=== PATIENT | female | born 1970 | race Caucasian/White ===

== ENCOUNTER 2017-10-21 15:50 | Emergency (ER) | payer OTHER, SELFPAY ==
[2017-10-21 16:05] VITALS: BP 124/78; PULSE 69; RESP 16; TEMP 36.7; O2SAT 94; BMI 27.0
--- NOTE | 2017-10-21 18:31 | ED.WOUNDLAC ---
HPI - Wound/Laceration General Chief Complaint: Wound/Laceration Stated Complaint: HIT IN THE HEAD Time Seen by Provider: 10/21/17 18:31 Source: patient Mode of arrival: ambulatory Limitations: no limitations History of Present Illness HPI narrative: The patient was visiting with family members about noon today. She went through a doorway. There was a wood carving of a boat mounted over the doorway. When the door slammed, the fixture fell striking her in the vertex of her scalp. She has a laceration and headache. She denies visual changes, confusion, or speech changes. She has had no bleeding from the nose, ears or mouth. She has no neck pain. Related Data Previous Rx's Medication Instructions Recorded albuterol sulfate [Ventolin HFA] 1 puff INH Q4H PRN #1 ea 03/22/16 metoprolol succinate [Toprol XL] 25 mg PO QDAY #90 tab 04/12/17 levothyroxine 0.05 mg PO QAM #90 tab 08/17/17 Allergies Allergy/AdvReac Type Severity Reaction Status Date / Time erythromycin base Allergy Mild Unverified 10/21/17 16:04 penicillin G Allergy Mild HIVES Unverified 10/21/17 16:04 Review of Systems Review of Systems All systems reviewed & are unremarkable except as noted in HPI and below Constitutional Reports as per HPI, Denies fatigue, Denies lethargy and Denies malaise Eyes Denies blurry vision and Denies change in vision ENT Ears, Nose, Mouth, and Throat: Denies abnormal hearing, Denies change in voice, Denies dizziness and Denies neck pain Musculoskeletal Denies neck pain Neurologic Denies abnormal hearing and Denies dizziness Endocrine Denies fatigue PFSH Surgical History History of third molar tooth extraction Family History Mother Age: 83 Hypertension Sister Age: 59 Cancer Social History Smoking Status: Never smoker Exam Initial Vital Signs Initial Vital Signs: Vital Signs Temperature 98.1 F 10/21/17 16:05 Pulse Rate 69 10/21/17 16:05 Respiratory Rate 16 10/21/17 16:05 Blood Pressure 124/78 H 08/04/18 16:05 Pulse Oximetry 94 10/21/17 16:05 Const General: cooperative and healthy appearing Nutritional Appearance: well nourished Orientation: alert, awake, oriented x3 and not confused [facility] Head: normocephalic and laceration (1 cm laceration to the vertex of the scalp) Ears: external ears normal and TM's normal bilaterally Nose: external nose normal, nares normal and No nasal discharge Face and sinus: sinuses nontender, face symmetric, no sinus tenderness and No dry mucous membranes Mouth: oral mucosae normal and moist mucous membranes Throat: posterior oropharynx normal Eyes General: appearance normal, both eyes and all related structures Eyelids: eyelids normal Conjunctivae: conjunctivae normal Sclera: sclerae normal Pupils: PERRL EOM: EOM intact bilaterally Neck Neck: normal visual inspection, full ROM and No tender Procedures Laceration Repair Laceration 1: Site: other (Scalp) Size (cm): 1 Description: linear Depth: simple, single layer Pre-repair: wound explored and irrigated extensively Course Vital Signs - 8 hr 10/21/17 16:05 Temperature 98.1 F Pulse Rate 69 Respiratory Rate 16 Blood Pressure 124/78 H Pulse Oximetry 94 Discharge Plan Departure Patient Disposition: Home, Self-Care Clinical Impression: Laceration of scalp Instructions: DI for Laceration Repair With Dermabond Activity Restrictions/Additional Instructions: Take Tylenol or Advil as needed for pain. You may shampoo after 24 hr. If the glue is not out within 5 days, apply a little Vaseline or baby oil to the glue, this will loosen the glue and will remove easily at that point. Return here for worsening headaches, visual changes, vomiting or confusion. Prescriptions: No Action albuterol sulfate [Ventolin HFA] 90 MCG/PUFF HFA aerosol inhaler 1 puff INH Q4H PRNQty: 1 RF: 3 metoprolol succinate [Toprol XL] 25 MG tablet extended release 24 hr 25 mg PO QDAY Qty: 90 RF: 3 levothyroxine 50 mcg tablet 0.05 mg PO QAM Qty: 90 RF: 0
[2017-10-21 18:56] VITALS: BP 120/70; PULSE 62; RESP 14; O2SAT 99
== END 2017-10-21 18:57 | disposition home or self-care (01) ==
PROVIDERS: Emergency Provider Emergency Medicine; Family Provider Family Medicine; PCP Family Medicine
DX: S01.01XA Laceration without foreign body of scalp, initial encounter (principal); W22.09XA Striking against other stationary object, initial encounter
CPT/HCPCS: 12001; 99282; 99283

== ENCOUNTER → 2018-06-30 09:05 | Outpatient (CLI) | payer OTHER, SELFPAY ==
--- NOTE | 2018-06-30 | DI.MG.S_ITS ---
BILATERAL DIGITAL SCREENING MAMMOGRAM 3D/2D WITH CAD: 06/30/2018 CLINICAL: Routine screening. Family history of breast cancer. Comparison is made to exams dated: 05/05/2017 mammogram, 04/01/2016 mammogram, and 09/05/2014 mammogram - [facility]. The tissue of both breasts is heterogeneously dense. This may lower the sensitivity of mammography. Current study was also evaluated with a Computer Aided Detection (CAD) system. No significant masses, calcifications, or other findings are seen in either breast. There has been no significant interval change. IMPRESSION: NEGATIVE There is no mammographic evidence of malignancy. A 1 year screening mammogram is recommended. This exam was interpreted at Station ID: [id number]. NOTE: For mammograms, a report in lay terms will be sent to the patient. Approximately 15% of breast malignancies will not be visualized mammographically. In the management of a palpable breast mass, a negative mammogram must not discourage biopsy of a clinically suspicious lesion. Electronically Signed By: Geo siddiqui/grace:07/02/2018 08:52:44 copy to: BATSHEVA SANCHEZ letter sent: Normal Exam ACR BI-RADS Category 1: Negative [id number]
== END ==
DX: Z12.31 Encounter for screening mammogram for malignant neoplasm of breast (principal); Z80.3 Family history of malignant neoplasm of breast
CPT/HCPCS: 77063; 77067

== ENCOUNTER → 2018-10-08 12:01 | Outpatient (CLI) | payer OTHER, SELFPAY ==
[2018-10-08 12:43] LABS: Add Manual Diff / Slide Review NO; Basophils Absolute Auto 0 /uL (0-100); Basophils Percent Auto 0.4 % (0-2); Eosinophils Absolute Auto 200 /uL (0-450); Eosinophils Percent Auto 3.3 % (2-4); Hematocrit 41.4 % (36-46); Hemoglobin 14.3 g/dL (12.0-16.0); Lymphocytes Absolute Auto 2200 /uL (1100-4500); Lymphocytes Percent Auto 38.4 % (25-40); Mean Corpuscular HGB Conc 34.6 % (30-36); Mean Corpuscular Hemoglobin 32.7 PG (26-34); Mean Corpuscular Volume 94.6 fL (80-100); Monocytes Absolute Auto 400 /uL (0-900); Monocytes Percent Auto 6.8 % (3-14); Neutrophils Absolute Auto 2900 /uL (1500-7000); Neutrophils Percent Auto 51.1 % (50-75); Platelet Count 219 X10^3/uL (150-400); Red Blood Cell Count 4.38 X10^6/uL (4.0-5.2); White Blood Cell Count 5.7 X10^3/uL (4.5-11.0)
[2018-10-08 13:08] LABS: Blood Urea Nitrogen 15 mg/dL (7-17); Calcium 9.6 mg/dL (8.4-10.2); Carbon Dioxide 26 mmol/L (22-32); Chloride 107 mmol/L (98-107); Estimated Glomerular Filt Rate > 60.0 mL/min (>60); Glucose 93 mg/dL (70-100); HEMOLYSIS < 15 (0-50); Magnesium 2.1 mg/dL (1.6-2.3); Potassium 3.9 mmol/L (3.4-5.1); Sodium 140 mmol/L (137-145)
[2018-10-08 13:39] LABS: Thyroid Stimulating Hormone 3.05 uIU/mL (0.47-4.68)
== END ==
PROVIDERS: Family Provider Student in an Organized Health Care Education/Training Program; PCP Student in an Organized Health Care Education/Training Program; Visit Provider Internal Medicine Cardiovascular Disease
DX: I49.3 Ventricular premature depolarization (principal)
CPT/HCPCS: 36415; 80048; 83735; 84443; 85025

== ENCOUNTER → 2018-10-24 07:46 | Outpatient (CLI) | payer OTHER, SELFPAY ==
--- NOTE | 2018-10-24 | DI.ECHO.S_ITS ---
[place] [facility]---------+ [facility] +---------+ : : [address] : : : : [id number] : : : : Phone: [phone] Echocardiogram Report + + :Name: HOWARD MACKENZIE Study Date: 10/24/2018 Height: 61 in : :[facility] Weight: 140 lb: : Gender: Female BSA: 1.6 m2 : :: 1970 Age: 48 yrs : :Reason For Study: PVCs : : Performed By: Venkatesh Barrios : :Referring: TISH RUSSELL : + + Interpretation Summary 1) Normal left ventricular thickness, size, wall motion, and systolic function (EF 55-60%). 2) Normal right ventricular size and function. 3) No significant valvular abnormalities. 4) No prior Echo available for comparison. Procedure: A two-dimensional transthoracic echocardiogram with color flow and Doppler was performed. The study quality was technically adequate. Comparison is made with the echocardiogram of 05/09/16. The patient was in normal sinus rhythm during the exam. The patient had frequent PVCs during the exam. Left Ventricle: The left ventricle is normal in size. There is normal left ventricular wall thickness. Trabeculae near apex are visualized. No thrombus is observed. The ejection fraction is estimated to be 55-60%. There are no focal wall motion abnormalities. Right Ventricle: The right ventricle is normal in size and function. Atria: Both atria are normal in size. The interatrial septum is intact with no evidence for an atrial septal defect. Mitral Valve: The mitral valve is normal in structure and function. There is trace mitral regurgitation. Aortic Valve: The aortic valve is trileaflet. The aortic valve opens well. There is no aortic valve stenosis. There is trace aortic regurgitation. Tricuspid Valve: The tricuspid valve is normal in structure and function. There is trace tricuspid regurgitation. The right ventricular systolic pressure is estimated to be at least 19 mmHg based on an estimated right atrial pressure of 3 mm Hg. Pulmonic Valve: The pulmonic valve is normal in structure and function. There is trace pulmonic regurgitation. Great Vessels: The aortic root is normal size. The dimensions of the ascending aorta are normal. The pulmonary artery is normal size. The IVC is of normal diameter and collapses greater than 50% with a sniff. This suggests a low right atrial pressure of 3 mm Hg. Pericardium/ Pleura There is no pericardial effusion. There is no pleural effusion. MMode/2D Measurements & Calculations LVIDd: 3.7 cm LVOT diam: 1.9 cm LVIDs: 2.6 cm Ao root diam: 2.9 cm FS: 29.3 % Aortic Jxn: 2.5 cm EPSS: 0.69 cm asc Aorta Diam: 2.7 cm IVSd: 0.81 cm Ao Arch Diam (Prox Trans): 2.5 cm LVPWd: 0.82 cm LV rangel. diameter/BSA (cm/m^2): 2.3 LV sys. diameter/BSA (cm/m^2): 1.6 LA dimension: 3.0 cm RA long axis: 3.7 cm LA A2 area: 15.4 cm2 RA area: 10.7 cm2 LA A4 area: 17.7 cm2 RA vol: 26.0 ml LA length (vol): 5.2 cm RA : 16.0 ml/m2 LA vol: 44.6 ml IVC diam: 1.5 cm LA vol index: 27.5 ml/m2 RVD1 (basal): 3.2 cm RVD2 (mid): 3.5 cm Doppler Measurements & Calculations Ao V2 max: 120.1 cm/sec LVOT Max Rodger: 109.1 cm/sec Ao V2 mean: 94.7 cm/sec LV V1 max P.8 mmHg Ao max P.8 mmHg LV V1 VTI: 24.5 cm Ao mean P.8 mmHg DAVIAN(I,D): 2.1 cm2 Ao V2 VTI: 30.8 cm DAVIAN(V,D): 2.5 cm2 sev ratio: 0.80 DAVIAN indexed to BSA (cm^2/m^2): 1.3 MV E max rodger: 78.4 cm/sec TR max rodger: 201.8 cm/sec MV A max rodger: 63.6 cm/sec TR max P.3 mmHg MV E/A: 1.2 PA V2 max: 57.4 cm/sec Med Peak E' Rodger: 5.6 cm/sec PA V2 mean: 46.0 cm/sec E/E' med: 14.1 PA mean P.87 mmHg Lat Peak E' Rodger: 10.3 cm/sec PA pr(Accel): 42.4 mmHg E/E' lat: 7.6 PA Accel Time: 0.08 sec E/e' average: 10.8 MV dec time: 0.18 sec SV([facility]): 66.2 ml Reading Physician:12:30 PM
== END ==
PROVIDERS: PCP Student in an Organized Health Care Education/Training Program; Visit Provider Internal Medicine Cardiovascular Disease
DX: I49.3 Ventricular premature depolarization (principal)
CPT/HCPCS: 93306

== ENCOUNTER 2019-06-12 13:09 | Emergency (ER) | payer OTHER, SELFPAY ==
[2019-06-12 13:10] VITALS: BP 140/72; PULSE 87; RESP 16; TEMP 36.8; O2SAT 99; BMI 28.3
--- NOTE | 2019-06-12 13:25 | PC.NURSE ---
pt reports, tenderness of lower abdominal.
--- NOTE | 2019-06-12 13:31 | ED_ITS ---
HPI - Abdominal Pain <RIP Canales - Last Filed: 06/12/19 15:16> General Chief Complaint: Abdominal Pain Stated Complaint: Thinks has an impaction Time Seen by Provider: 06/12/19 13:10 Source: patient Mode of arrival: Ambulatory Limitations: no limitations History of Present Illness HPI narrative: This is a 49-year-old female, nonsmoker, who presents to ED with abdominal discomfort and distension. Patient reports she feels impaction in the rectal area. Patient states she has bowel movement usually at least once to twice a day but no bowel movements for last 2 days and feels like it's backed up. Patient denies fever, chills, nausea. She had mucousy vomit last night after she took 2 doses of 2 complex and from abdominal cramping discomfort. Patient has normal appetite. She denies changes in activity but has been taking increasing and bread in her diet. Patient states possibly not enough drinking water. Patient states she has occasional problem with constipation. She felt mushy stools in the rectum but no hard stools. Related Data Home Medications Medication Instructions Recorded Confirmed diltiazem HCl 120 mg 120 mg PO DAILY 01/15/19 05/29/19 tablet,extended release 24 hr flecainide 50 mg tablet 50 mg PO Q12H 05/29/19 05/29/19 Previous Rx's Medication Instructions Recorded albuterol sulfate 90 mcg/actuation 1 puff INHALATION Q4H PRN #6.7 gram 05/29/19 aerosol inhaler azithromycin 250 mg tablet See Rx Instructions PO .COMPLEX #6 05/29/19 tab ondansetron 4 mg disintegrating 4 mg PO BID PRN 7 Days #14 tab 05/29/19 tablet Allergies Allergy/AdvReac Type Severity Reaction Status Date / Time erythromycin base Allergy Mild Verified 06/12/19 13:20 penicillin G Allergy Mild HIVES Verified 06/12/19 13:20 Review of Systems <RIP Canales - Last Filed: 06/12/19 15:16> Review of Systems Narrative: General: Denies fever, chills, fatigue, malaise, sweats. HEENT: Denies sinus pain, ear pain, sore throat, difficulty swallowing, dizziness. Respiratory: Denies dyspnea, cough, wheezing, hemoptysis, sputum. Cardiovascular: Denies chest pain, palpitations, orthopnea, edema. Gastrointestinal: See HPI : Denies dysuria, frequency, incontinence, hematuria, urinary retention. Musculoskeletal: Denies weakness, joint pain or bony pain. Skin: Denies rash, skin lesions, or other. Neurologic: Denies weakness, headache, numbness, change in speech, confusion, seizures, incoordination. Psychiatric: No concerning psychosocial issues. 12-point review of systems is negative except for those stated above. Patient History <RIP Canales - Last Filed: 06/12/19 15:16> Medical History (Updated 06/12/19 @ 15:12 by RIP Canales) PVCs (premature ventricular contractions) (Acute) Skin cancer (Acute) Surgical History History of third molar tooth extraction Social History Smoking Status: Never smoker Smoking Status: Never smoker Substance Use Type: does not use Exam <RIP Canales - Last Filed: 06/12/19 15:16> Narrative Exam Narrative: GEN: Alert, oriented x 3, well appearing and nourished, and in no acute distress. Head: Normal cephalic, atraumatic. No scalp or temporal tenderness, palpable mass or rash. EYES: Pupils are equal, round, and reactive to light and accommodation. Extraocular muscles are intact bilaterally. There is no subconjunctival hemorrhage, exudate and sclera non-icteric. ENT: Bilateral auditory canals and tympanic membranes clear. Hearing grossly intact. Nose without bleeding, purulent discharge or deviation. Facial sinuses nontender to palpate. Mucous membrane moist, no mucosal lesion. Throat without erythema, tonsillar hypertrophy or exudate. Uvula in midline, airway patent. Neck: Trachea in midline. No JVD, non-tender without lymphadenopathy. No masses or thyroid megaly. Supple, non-tender and no meningeal signs. CARDIAC: Normal regular rate and rhythm without murmurs, gallops, or rubs. No chest wall tenderness. No peripheral edema, cyanosis or pallor. Capillary refill is less than 2 seconds. RESPIRATORY: Lungs are clear to auscultate bilaterally. No cough, wheezes, rales, or rhonchi. No stridor, respiratory distress, increase work of breathing, or accessary muscle used. ABD: Abdomen soft and non-distended. Mild discomfort to palpate in left lower quadrant. No guarding or rebound tenderness to palpate. Bowel sounds are normal in all 4 quadrants. There is no palpable masses or organomegaly. EXT: Full painless ROM of all extremities with no loss of sensation, strength, effusion or edema. SKIN: Warm, dry, normal color for patient. No erythema, lesions or rash over visible areas. BACK: Nontender without deformity or crepitance. No flank tenderness. NEUROLOGICAL: Alert and oriented to place, time and person. Sensation and motor function intact bilaterally. No facial droops, dysphasia. Initial Vital Signs Initial Vital Signs: Vital Signs Temperature 98.2 F 06/12/19 13:10 Pulse Rate 87 06/12/19 13:10 Respiratory Rate 16 06/12/19 13:10 Blood Pressure 140/72 06/12/19 13:10 Pulse Oximetry 99 06/12/19 13:10 <Konrad Carlson DO - Last Filed: 06/12/19 15:21> Initial Vital Signs Initial Vital Signs: Vital Signs Temperature 98.2 F 06/12/19 13:10 Pulse Rate 87 06/12/19 13:10 Respiratory Rate 16 06/12/19 13:10 Blood Pressure 140/72 06/12/19 13:10 Pulse Oximetry 99 06/12/19 13:10 Scores <RIP Canales - Last Filed: 06/12/19 15:16> GCS Soham coma scale eye opening: Spontaneous Soham coma scale verbal response: Orientated Soham coma scale motor response: Obey commands Dunbar coma scale total score: 15 Course <RIP Canales - Last Filed: 06/12/19 15:16> Orders Ordered: ED Orders 06/12/19 13:30 XR acute abdomen series Stat Discontinued Medications Mineral Oil (Mineral Oil Enema) 1 each [place] NOW ONE Stop: 06/12/19 15:18 Sodium Biphosphate/Sodium Phosphate (Fleet Enema) 1 each [place] NOW ONE Stop: 06/12/19 14:27 Vital Signs Vital signs: Vital Signs - 8 hr 06/12/19 13:10 Temperature 98.2 F Pulse Rate 87 Respiratory Rate 16 Blood Pressure 140/72 Pulse Oximetry 99 <Konrad Carlson DO - Last Filed: 06/12/19 15:21> Orders Ordered: ED Orders 06/12/19 13:30 XR acute abdomen series Stat Discontinued Medications Mineral Oil (Mineral Oil Enema) 1 each [place] NOW ONE Stop: 06/12/19 15:18 Sodium Biphosphate/Sodium Phosphate (Fleet Enema) 1 each [place] NOW ONE Stop: 06/12/19 14:27 Vital Signs Vital signs: Vital Signs - 8 hr 06/12/19 13:10 Temperature 98.2 F Pulse Rate 87 Respiratory Rate 16 Blood Pressure 140/72 Pulse Oximetry 99 MDM - Abdominal Pain <RIP Canales - Last Filed: 06/12/19 15:16> Differential Diagnosis Differential diagnosis: Likely abdominal pain, small bowel obstruction and other (constipation) Medical Records Attestation: I reviewed the patient's medical records. Imaging Data XR-AAS: Radiologist's Impression: [address] [address] XRay Report Signed Patient: Evonne Hutton MMR#: [id number] : 1970Acct:[id number] Age/Sex: 49 / FDate of Service: 06/12/19 Loc: ED Accession Number: [id number] Procedure: XR acute abdomen series Ordering Provider: Ethan Guerin PROCEDURE: XR ACUTE ABDOMEN SERIES INDICATIONS: abd pain, distention TECHNIQUE: One view chest and two views of the abdomen were acquired. COMPARISON: None. FINDINGS: Surgical changes and devices: None. Chest: Lungs are clear. Heart size is normal. No pleural effusions. No pneumoperitoneum. Abdomen: Bowel gas pattern is normal. No air-filled distended small bowel loops are evident demonstrating air-fluid levels. Moderate amount of stool seen within the colon. No suspicious calcifications. Visualized solid organ contours appear normal. Bones: No suspicious bony lesions. IMPRESSION: 1. No bowel obstruction. 2. No acute cardiopulmonary process is evident. Dictated by: Sterling Baker M.D. on 06/12/2019 at 13:16 Approved by: Sterling Baker M.D. on 06/12/2019 at 13:18 MDM Narrative Medical decision making narrative: This is 49 year female who presents to ED with no good bowel movement for last 2 days with rectal pressure and mild discomfort in her abdomen without fever. Patient reports changes in her diet with increased bread intake. X-ray test does not show bowel obstruction but moderate stool in colon. Rectal exam appreciated semi soft stool in rectal vault. Fleet enema was provided while in ED with good result. Patient reports feeling much better at this time and is interesting taking additional medications to help with her constipation. Patient advised to take magnesium citrate or milk of magnesium with acute symptoms and incorporate with increasing water, activity and fiber daily to prevent constipation. Also patient advised to take MiraLax as needed to prevent constipation. Return precautions were discussed with the patient and patient verbalized understanding and agreement with the treatment plan. Discharge Plan Departure Patient Disposition: Home Clinical Impression: Constipation Qualifiers: Constipation type: unspecified constipation type Qualified Code(s): K59.00 - Constipation, unspecified Instructions: DI for Abdominal Pain-Adult, DI for Constipation Activity Restrictions/Additional Instructions: You have been diagnosed with [abdominal pain and constipation. Acute abdominal series x-ray does not indicate bowel obstruction but moderate stool in colon. You were medicated with Fleet enema while in ED with good result. Please increase water and fiber intake. You can incorporate magnesium daily to prevent constipation. With acute symptoms, you can use Mag citrate or milk of magnesium. To prevent constipation, you can use MiraLax [id number] medication.]. What to do: *Take your medications as directed. *Follow up with your primary care provider in 2-3 days, call for an appointment. Let them know you were seen in the ED and that we asked you to be seen in follow up. *Return to ED if you have any new, worsening, or concerning symptoms, such as [fever, increasing pain, chest pain, breathing difficulty, unable to tolerate fluids, fainting like episodes, or any acute concerns]. Prescriptions: No Action diltiazem HCl 120 mg tablet extended release 24 hr 120 mg PO DAILY RF: 0 flecainide 50 mg tablet 50 mg PO Q12H RF: 0 albuterol sulfate [Ventolin HFA] 90 mcg/actuation HFA aerosol inhaler 1 puff inhalation Q4H PRN (Reason: bronchospasm) Qty: 6.7 RF: 11 ondansetron 4 mg tablet,disintegrating 4 mg PO BID PRN (Reason: nausea and vomiting) 7 Days Qty: 14 RF: 0 azithromycin 250 mg tablet See Rx Instructions PO .COMPLEX Qty: 6 RF: 0 Referrals: Gilberto Hope MD [Primary Care Provider] - <Konrad Carlson, - Last Filed: 06/12/19 15:21> Cosign ED Attending Cosignature Attestation: Dr Carlson Co-Sign Statement: I was available for consultation during this patient's emergency department visit. This chart is signed by myself for administrative purposes only. I did not have direct contact with this patient during this visit. They were seen independently by the APC.
[2019-06-12 15:21] VITALS: PULSE 55; RESP 18; TEMP 36.9; O2SAT 98
[2019-06-12] MEDS: MINERAL OIL 1 EACH ENEMA PR (15:21)
== END 2019-06-12 15:30 | disposition home or self-care (01) ==
PROVIDERS: Emergency Provider Nurse Practitioner Family; PCP Student in an Organized Health Care Education/Training Program
DX: K59.00 Constipation, unspecified (principal); R10.9 Unspecified abdominal pain; E03.9 Hypothyroidism, unspecified
CPT/HCPCS: 74022; 99283

== ENCOUNTER 2019-08-25 13:30 | Emergency (ER) | payer OTHER, SELFPAY ==
[2019-08-25 14:05] VITALS: BP 123/60; PULSE 70; RESP 16; TEMP 36.7; O2SAT 99; BMI 26.4
--- NOTE | 2019-08-25 16:28 | DI.RAD.S_ITS ---
PROCEDURE: XR LUMBAR SPINE 2-3V INDICATIONS: back pain TECHNIQUE: 3 views of the lumbar spine were acquired. COMPARISON: None. FINDINGS: Bones: There are 5 lumbar-type vertebral bodies. The lowest intervertebral disk space is designated as L5-S1. The vertebral body heights are well-maintained without evidence to suggest an acute compression fracture. The bone mineralization is within normal limits. Moderate degenerative changes of the lumbar spine are prematurely evident involving the lower lumbar facet joints. There are scattered areas of mild disc height loss, particularly within the upper lumbar region. There also are small intra-disc osteophyte complexes. Moderate degenerative changes of the sacroiliac joints are present. Soft tissues: The soft tissues of the imaged abdomen and pelvis are within normal limits. IMPRESSION: Moderate degenerative changes of the lumbosacral spine. No fractures. Dictated by: Sterling Baker M.D. on 08/25/2019 at 15:49 Approved by: Sterling Baker M.D. on 08/25/2019 at 15:52
[2019-08-25] MEDS: KETOROLAC 60 MG/2 ML VIAL 30 MG IM (16:36)
[2019-08-25] MEDS: LIDOCAINE PATCH 1 EACH ADH..PATCH TOP (16:36)
[2019-08-25] MEDS: CYCLOBENZAPRINE 10 MG TABLET PO (16:38)
[2019-08-25] MEDS: predniSONE 20 MG TABLET 60 MG PO (18:29)
[2019-08-25] MEDS: HYDROCODONE/ACET 5/325 TABLET 1 TAB PO (18:29)
[2019-08-25 19:24] VITALS: BP 123/76; PULSE 77; RESP 16; O2SAT 98
[2019-08-25] MEDS: HYDROCODONE/ACET 5/325 PREPACK 1 BOTTLE MISC (19:43)
--- NOTE | 2019-08-25 20:23 | ED_ITS ---
HPI - Back Pain/Injury <SHERRON Quiroga - Last Filed: 08/25/19 20:28> General Chief Complaint: Back Pain/Injury Stated Complaint: low back out x5 days ago Time Seen by Provider: 08/25/19 16:00 Source: patient Mode of arrival: Wheelchair Limitations: no limitations History of Present Illness HPI Narrative: The patient is a 49-year-old female nonsmoker with history of hypothyroidism and arrhythmia who presents with a chief complaint of lower back pain after falling 5 days ago. She states she got tangled up in her dog's leash, fell forward. Since then she has had low back pain radiating down the backs of both of her legs. She denies any incontinence of bowel, incontinence of bladder numbness of her groin. She has tried taking Advil with no relief. She has not followed up with primary care provider. She states that she did not hit her head neck or back on the fall, but fell forward and caught herself with her hands. She denies any previous injuries to her back before. Related Data Home Medications Medication Instructions Recorded Confirmed diltiazem HCl 120 mg 120 mg PO DAILY 01/15/19 08/29/19 tablet,extended release 24 hr flecainide 50 mg tablet 50 mg PO Q12H 05/29/19 08/29/19 Previous Rx's Medication Instructions Recorded albuterol sulfate 90 mcg/actuation 1 puff INHALATION Q4H PRN #6.7 gram 05/29/19 aerosol inhaler Allergies Allergy/AdvReac Type Severity Reaction Status Date / Time erythromycin base Allergy Mild Verified 08/29/19 12:50 penicillin G Allergy Mild HIVES Verified 08/29/19 12:50 Review of Systems <AMY Quiroga - Last Filed: 08/25/19 20:28> Review of Systems Narrative: GENERAL: Denies chills, fatigue, malaise, fever, sweats. HEENT: Denies sinus pain, ear pain, sore throat, difficulty swallowing, dizziness. RESPIRATORY: Denies dyspnea, cough, wheezing, hemoptysis, sputum. CARDIOVASCULAR: Denies chest pain, palpitations, orthopnea, edema, GASTROINTESTINAL: Denies nausea, vomiting, abdominal pain, diarrhea, constipation, melena. : Denies dysuria, frequency, incontinence, hematuria, urinary retention. MUSCULOSKELETAL: See HPI SKIN: Denies rash, skin lesions, or other NEUROLOGIC: Denies weakness, headache, numbness, change in speech, confusion, seizures, incoordination. PSYCHIATRIC: No concerning psychosocial issues. 12 point review of systems is negative except for those stated above Patient History <AMY Quiroga - Last Filed: 08/25/19 20:28> Medical History PVCs (premature ventricular contractions) (Acute) Skin cancer (Acute) Surgical History History of third molar tooth extraction Family History Mother Age: 85 Hypertension Sister Age: 61 Cancer Social History Smoking Status: Never smoker Smoking Status: Never smoker Substance Use Type: does not use Exam <AMY Quiroga - Last Filed: 08/25/19 20:28> Narrative Exam Narrative: GENERAL: This is a well-nourished, well-developed patient, no acute distress HEAD: Atraumatic. Normocephalic. No temporal or scalp tenderness. EYES: Pupils equal round and reactive. Extraocular motions intact. No scleral icterus. No injection or drainage. ENT: Nose without bleeding, purulent drainage or septal hematoma. . Airway patent. NECK: Trachea midline. No JVD or lymphadenopathy. Supple, nontender, no menin geal signs. CARDIOVASCULAR: Regular rate and rhythm RESPIRATORY: Clear to auscultation. Breath sounds equal bilaterally. No wheezes, rales, or rhonchi. GASTROINTESTINAL: Abdomen soft, diffusely tender, nondistended. No hepato- splenomegaly, or palpable masses. No guarding. EXTREMITIES: No clubbing, cyanosis, or edema. No joint tenderness, effusion, or edema noted. BACK: Cervical and thoracic spine are without deformity or crepitance. No flank tenderness. Tenderness to palpation of lumbar spine as well as bilateral paraspinal muscles. NEURO: AOx3. Stable gait. Strength is equal upper and lower extremities bilaterally. Sensation intact bilateral lower inner thighs SKIN: No rash or erythema on visible skin Initial Vital Signs Initial Vital Signs: Vital Signs Temperature 98.1 F 08/25/19 14:05 Pulse Rate 70 08/25/19 14:05 Respiratory Rate 16 08/25/19 14:05 Blood Pressure 123/60 08/25/19 14:05 Pulse Oximetry 99 08/25/19 14:05 <Beck Ward MD - Last Filed: 09/16/19 18:37> Initial Vital Signs Initial Vital Signs: Vital Signs Temperature 98.1 F 08/25/19 14:05 Pulse Rate 70 08/25/19 14:05 Respiratory Rate 16 08/25/19 14:05 Blood Pressure 123/60 08/25/19 14:05 Pulse Oximetry 99 08/25/19 14:05 Scores <AMY Quiroga - Last Filed: 08/25/19 20:28> GCS [place] coma scale eye opening: Spontaneous [place] coma scale verbal response: Orientated [place] coma scale motor response: Obey commands [place] coma scale total score: 15 Course <AMY Quiroga - Last Filed: 08/25/19 20:28> Orders Ordered: Discontinued Medications Hydrocodone Bitart/Acetaminophen ([place] 5/325) 1 tab PO NOW ONE Stop: 08/25/19 17:59 Last Admin: 08/25/19 18:29 Dose: 1 tab Documented by: DANE Hydrocodone Bitart/Acetaminophen (Vic[place] 5/325 Prepack) 1 bottle MISC SEEINSTR ONE Stop: 08/25/19 19:22 Last Admin: 08/25/19 19:43 Dose: 1 bottle Documented by: SARA Cyclobenzaprine HCl (Flexeril) 10 mg PO NOW ONE Stop: 08/25/19 16:29 Last Admin: 08/25/19 16:38 Dose: 10 mg Documented by: MMCJARED Ketorolac Tromethamine (Toradol) 30 mg IM NOW ONE Stop: 08/25/19 16:29 Last Admin: 08/25/19 16:36 Dose: 30 mg Documented by: MMCMADDISONL Lidocaine (Lidoderm) 1 each TOP NOW ONE Stop: 08/25/19 16:29 Last Admin: 08/25/19 16:36 Dose: 1 each Documented by: ILDAL Prednisone (Deltasone) 60 mg PO NOW ONE Stop: 08/25/19 17:59 Last Admin: 08/25/19 18:29 Dose: 60 mg Documented by: DANE Vital Signs Vital signs: Vital Signs - 8 hr 08/25/19 14:05 08/25/19 19:24 Temperature 98.1 F Pulse Rate 70 77 Respiratory Rate 16 16 Blood Pressure 123/60 Blood Pressure [Right Arm] 123/76 Pulse Oximetry 99 98 <Beck Ward MD - Last Filed: 09/16/19 18:37> Orders Ordered: Discontinued Medications Hydrocodone Bitart/Acetaminophen ([place] 5/325) 1 tab PO NOW ONE Stop: 08/25/19 17:59 Last Admin: 08/25/19 18:29 Dose: 1 tab Documented by: DANE Hydrocodone Bitart/Acetaminophen (Vicodin 5/325 Prepack) 1 bottle MISC SEEINSTR ONE Stop: 08/25/19 19:22 Last Admin: 08/25/19 19:43 Dose: 1 bottle Documented by: SARA Cyclobenzaprine HCl (Flexeril) 10 mg PO NOW ONE Stop: 08/25/19 16:29 Last Admin: 08/25/19 16:38 Dose: 10 mg Documented by: SAMMY Ketorolac Tromethamine (Toradol) 30 mg IM NOW ONE Stop: 08/25/19 16:29 Last Admin: 08/25/19 16:36 Dose: 30 mg Documented by: SAMMY Lidocaine (Lidoderm) 1 each TOP NOW ONE Stop: 08/25/19 16:29 Last Admin: 08/25/19 16:36 Dose: 1 each Documented by: SAMMY Prednisone (Deltasone) 60 mg PO NOW ONE Stop: 08/25/19 17:59 Last Admin: 08/25/19 18:29 Dose: 60 mg Documented by: DANE Vital Signs Vital signs: Vital Signs - 8 hr 08/25/19 14:05 08/25/19 19:24 Temperature 98.1 F Pulse Rate 70 77 Respiratory Rate 16 16 Blood Pressure 123/60 Blood Pressure [Right Arm] 123/76 Pulse Oximetry 99 98 MDM - Back Pain/Injury <AMY Quiroga - Last Filed: 08/25/19 20:28> Imaging Data Lumbar x-ray: Radiologist's Impression: [facility] [place] [id number] XRay Report Signed Patient: Evonne Hutton [facility]#: [id number] : 1970Acct:[id number] Age/Sex: 49 / FDate of Service: 08/25/19 Loc: ED Accession Number: [id number] Procedure: XR lumbar spine 2-3V Ordering Provider: Fallon Francois PROCEDURE: XR LUMBAR SPINE 2-3V INDICATIONS: back pain TECHNIQUE: 3 views of the lumbar spine were acquired. COMPARISON: None. FINDINGS: Bones: There are 5 lumbar-type vertebral bodies. The lowest intervertebral disk space is designated as L5-S1. The vertebral body heights are well-maintained without evidence to suggest an acute compression fracture. The bone mineralization is within normal limits. Moderate degenerative changes of the lumbar spine are prematurely evident involving the lower lumbar facet joints. There are scattered areas of mild disc height loss, particularly within the upper lumbar region. There also are small intra-disc osteophyte complexes. Moderate degenerative changes of the sacroiliac joints are present. Soft tissues: The soft tissues of the imaged abdomen and pelvis are within normal limits. IMPRESSION: Moderate degenerative changes of the lumbosacral spine. No fractures. Dictated by: Sterling Baker M.D. on 08/25/2019 at 15:49 Approved by: Sterling Baker M.D. on 08/25/2019 at 15:52 MDM Narrative Medical decision making narrative: The patient is a 49-year-old female who presents with a chief complaint of lower back pain after falling while walking her dog approximately 5 days ago. X-ray is no acute findings. She has no red flag symptoms of incontinence of bowel, incontinence of bladder saddle anesthesia and states understanding of these are return precautions. She feels much improved after the above-stated medications, and gave her prescriptions/cecy e-home pack thereof. I discussed at length the importance of following up with primary care provider as physical therapy may be beneficial for this patient. I discussed at length following up with PCP in the next few days, coming back to the emergency department for any acute concerns such as incontinence of bowel, incontinence of bladder or numbness in her groin. Patient has no questions or concerns upon discharge and states understanding of return precautions as well as follow-up care. Discharge Plan Departure Patient Disposition: Home Clinical Impression: Acute back pain Discharge Date/Time: 08/25/19 19:47 Instructions: DI for Back Pain With Sciatica, DI for Back Spasm Activity Restrictions/Additional Instructions: Thank you for trusting us with your care today I sent several prescriptions to [facility] in [place]. This includes a pain patch, Toradol, Flexeril and prednisone I have given you a prescription of Toradol. This is an NSAID. Do not combine it with other NSAIDs such as Aleve or ibuprofen. I suggest taking it with some food, as it can irritate your stomach. I have given you a take-home pack of a narcotic for pain. Be aware that this can be constipating and sedating. I encouraged taking with a stool softener, pushing fluids and fiber. Do not take and drive, operate heavy machinery, etc. Do not combine it with any other sedating substances such as alcohol. The combination of narcotics and alcohol and/or other sedatives can be lethal. Please be aware that we do not provide refills of controlled substances in the emergency department. Please follow-up with primary care provider in the next few days. Please come back to the emergency department for any acute concerns such as incontinence bowel, incontinence of bladder or numbness in your groin Prescriptions: No Action diltiazem HCl 120 mg tablet extended release 24 hr 120 mg PO DAILY RF: 0 flecainide 50 mg tablet 50 mg PO Q12H RF: 0 albuterol sulfate [Ventolin HFA] 90 mcg/actuation HFA aerosol inhaler 1 puff inhalation Q4H PRN (Reason: bronchospasm) Qty: 6.7 RF: 11 Referrals: Gilberto Hope MD [Primary Care Provider] - <Beck Ward MD - Last Filed: 09/16/19 18:37> [facility] Att[facility]: I was immediately available in the department for consultation. This documentation has been reviewed and I agree with assessment and plan. Supervised by Beck Ward MD
== END 2019-08-25 19:47 | disposition home or self-care (01) ==
PROVIDERS: Emergency Provider Nurse Practitioner Family; PCP Student in an Organized Health Care Education/Training Program
DX: M54.42 Lumbago with sciatica, left side (principal); W19.XXXA Unspecified fall, initial encounter
CPT/HCPCS: 72100; 96372; 99283; J1885

== ENCOUNTER → 2019-08-29 13:08 | Outpatient (CLI) | payer OTHER, SELFPAY ==
[2019-08-29 15:13] LABS: TSH w/ Reflex to FT4 3.59 uIU/mL (0.47-4.68)
== END ==
PROVIDERS: PCP Student in an Organized Health Care Education/Training Program; Referring Provider Student in an Organized Health Care Education/Training Program; Visit Provider Student in an Organized Health Care Education/Training Program
DX: E03.9 Hypothyroidism, unspecified (principal)
CPT/HCPCS: 36415; 84443

== ENCOUNTER → 2020-02-06 12:44 | Outpatient (CLI) | payer OTHER, SELFPAY ==
[2020-02-06 15:44] LABS: Cholesterol 245 mg/dL (140-199); HDL Cholesterol 61 mg/dL (40-60); LDL Cholesterol Calculated 155 mg/dL (<100); Triglycerides 147 mg/dL (35-150)
== END ==
PROVIDERS: PCP Student in an Organized Health Care Education/Training Program; Referring Provider Internal Medicine Cardiovascular Disease; Visit Provider Internal Medicine Cardiovascular Disease
DX: Z00.00 Encounter for general adult medical examination without abnormal findings (principal)
CPT/HCPCS: 36415; 80061

== ENCOUNTER → 2020-03-23 08:28 | Outpatient (CLI) | payer OTHER, SELFPAY ==
[2020-03-23 11:07] LABS: COVID19 -Nasal RAPID Negative (Negative)
== END ==
PROVIDERS: PCP Student in an Organized Health Care Education/Training Program; Visit Provider Physician Assistant
DX: Z20.822 Contact with and (suspected) exposure to COVID-19 (principal)
CPT/HCPCS: 87635

== ENCOUNTER → 2022-11-02 10:56 | Outpatient (CLI) | payer OTHER, SELFPAY ==
[2022-11-02 12:25] LABS: Add Manual Diff / Slide Review NO; Basophils Absolute Auto 0 /uL (0-100); Basophils Percent Auto 0.5 % (0-2); Eosinophils Absolute Auto 200 /uL (0-450); Eosinophils Percent Auto 4.1 % (2-4); Hematocrit 37.7 % (36-46); Hemoglobin 12.9 g/dL (12.0-16.0); Lymphocytes Absolute Auto 2000 /uL (1100-4500); Lymphocytes Percent Auto 46.4 % (25-40); Mean Corpuscular HGB Conc 34.2 % (30-36); Mean Corpuscular Hemoglobin 32.3 PG (26-34); Mean Corpuscular Volume 94.6 fL (80-100); Monocytes Absolute Auto 400 /uL (0-900); Monocytes Percent Auto 8.8 % (3-14); Neutrophils Absolute Auto 1800 /uL (1500-7000); Neutrophils Percent Auto 40.2 % (50-75); Platelet Count 251 X10^3/uL (150-400); Red Blood Cell Count 3.98 X10^6/uL (4.0-5.2); Red Cell Distribution Width 13.3 % (11.6-14.8); White Blood Cell Count 4.4 X10^3/uL (4.5-11.0)
[2022-11-02 12:53] LABS: Alanine Aminotransferase 58 IU/L (<35); Albumin 3.8 g/dL (3.5-5.0); Albumin Globulin Ratio 1.4 (1.0-2.8); Alkaline Phosphatase 70 U/L (38-126); Aspartate Aminotransferase 55 IU/L (14-36); BUN Creatinine Ratio 20.3 (6-22); Bilirubin Total 0.4 mg/dL (0.2-1.3); Blood Urea Nitrogen 14 mg/dL (7-17); Calcium 9.3 mg/dL (8.4-10.2); Carbon Dioxide 27 mmol/L (22-32); Chloride 108 mmol/L (98-107); Cholesterol 227 mg/dL (140-199); Estimated Glomerular Filt Rate > 60 mL/min (>60); Globulin 2.8 g/dL (1.7-4.1); Glucose 93 mg/dL (70-100); HDL Cholesterol 56 mg/dL (40-60); HEMOLYSIS < 15 (0-50); LDL Cholesterol Calculated 144 mg/dL (<100); Sodium 140 mmol/L (137-145); Total Protein 6.6 g/dL (6.3-8.2); Triglycerides 136 mg/dL (35-150)
[2022-11-02 13:20] LABS: Thyroid Stimulating Hormone 2.31 uIU/mL (0.47-4.68)
== END ==
PROVIDERS: PCP Pediatrics; Referring Provider Pediatrics; Visit Provider Pediatrics
DX: E03.9 Hypothyroidism, unspecified (principal); E78.5 Hyperlipidemia, unspecified
CPT/HCPCS: 36415; 80053; 80061; 84443; 85025

== ENCOUNTER → 2023-01-13 14:34 | Outpatient (CLI) | payer OTHER, SELFPAY ==
[2023-01-13 15:43] LABS: Erythrocyte Sedimentation Rate 34 MM/HR (0-20)
[2023-01-13 15:46] LABS: Cholesterol 151 mg/dL (140-199)
[2023-01-13 16:05] LABS: Follicle Stimulating Hormone 58.9 mIU/mL; Luteinizing Hormone 30.9 mIU/mL
[2023-01-13 17:27] LABS: Testosterone 14.7 ng/dL (5.71-77.0)
== END ==
PROVIDERS: PCP Pediatrics; Referring Provider Pediatrics; Visit Provider Pediatrics
DX: N95.9 Unspecified menopausal and perimenopausal disorder (principal); R23.2 Flushing; H02.401 Unspecified ptosis of right eyelid; H51.8 Other specified disorders of binocular movement; E78.5 Hyperlipidemia, unspecified
CPT/HCPCS: 36415; 82465; 83001; 83002; 84403; 85651

== ENCOUNTER → 2023-02-17 12:33 | Outpatient (CLI) | payer OTHER, SELFPAY ==
[2023-02-17 13:28] LABS: Add Manual Diff / Slide Review NO; Basophils Absolute Auto 0 /uL (0-100); Basophils Percent Auto 0.6 % (0-2); Eosinophils Absolute Auto 100 /uL (0-450); Eosinophils Percent Auto 2.3 % (2-4); Hematocrit 43.3 % (36-46); Hemoglobin 14.7 g/dL (12.0-16.0); Lymphocytes Absolute Auto 2100 /uL (1100-4500); Lymphocytes Percent Auto 38.7 % (25-40); Mean Corpuscular Hemoglobin 32.1 PG (26-34); Mean Corpuscular Volume 94.4 fL (80-100); Monocytes Absolute Auto 300 /uL (0-900); Monocytes Percent Auto 5.7 % (3-14); Neutrophils Absolute Auto 2800 /uL (1500-7000); Neutrophils Percent Auto 52.7 % (50-75); Platelet Count 233 X10^3/uL (150-400); Red Blood Cell Count 4.59 X10^6/uL (4.0-5.2); Red Cell Distribution Width 13.2 % (11.6-14.8); White Blood Cell Count 5.3 X10^3/uL (4.5-11.0)
[2023-02-17 13:45] LABS: Erythrocyte Sedimentation Rate 23 MM/HR (0-20)
[2023-02-17 13:47] LABS: Alanine Aminotransferase 49 IU/L (<35); Albumin 4.5 g/dL (3.5-5.0); Albumin Globulin Ratio 1.4 (1.0-2.8); Alkaline Phosphatase 67 U/L (38-126); Aspartate Aminotransferase 50 IU/L (14-36); Bilirubin Total 0.6 mg/dL (0.2-1.3); Blood Urea Nitrogen 12 mg/dL (7-17); Calcium 10.3 mg/dL (8.4-10.2); Carbon Dioxide 26 mmol/L (22-32); Chloride 107 mmol/L (98-107); Estimated Glomerular Filt Rate > 60 mL/min (>60); Globulin 3.3 g/dL (1.7-4.1); Glucose 92 mg/dL (70-100); HEMOLYSIS 24 (0-50); Potassium 4.1 mmol/L (3.4-5.1); Sodium 142 mmol/L (137-145); Total Protein 7.8 g/dL (6.3-8.2); Uric Acid 4.1 mg/dL (2.5-6.2)
[2023-02-17 13:48] LABS: Alanine Aminotransferase 49 IU/L (<35); Albumin 4.6 g/dL (3.5-5.0); Albumin Globulin Ratio 1.4 (1.0-2.8); Alkaline Phosphatase 69 U/L (38-126); Aspartate Aminotransferase 53 IU/L (14-36); Bilirubin Total 0.6 mg/dL (0.2-1.3); Bilirubin Unconjugated 0.3 mg/dL (0.0-1.1); Globulin 3.2 g/dL (1.7-4.1); HEMOLYSIS 26 (0-50); Total Protein 7.8 g/dL (6.3-8.2)
[2023-02-17 13:53] LABS: High Sensitivity CRP - Cardiac 0.9 mg/L (1.0-3.0)
[2023-02-17 13:58] LABS: Rheumatoid Factor < 8.6 IU/mL (<12.0)
[2023-02-18 19:18] LABS: SS A Ro Sjogrens Antibody < 0.2 AI (0.0-0.9); SS B La Sjogrens Antibody < 0.2 AI (0.0-0.9)
[2023-02-20 08:43] LABS: Hepatitis B Surf Ab Qualitativ Reactive (.)
[2023-02-20 12:45] LABS: Fecal Immunochemical Test Negative (Negative)
[2023-02-20 16:34] LABS: Hepatitis B Surface Antigen NEGATIVE s/c (NEGATIVE)
[2023-02-20 16:51] LABS: Hep C Virus Ab w/Reflex Quant NEGATIVE s/c (NEGATIVE)
[2023-02-21 20:55] LABS: ANA Screen, IFA Positive (.)
[2023-02-23 12:04] LABS: MuSK Antibodies <1.0 U/mL (.)
== END ==
LOC: LAB 12:36
PROVIDERS: PCP Family Medicine; Referring Provider Ophthalmology; Visit Provider Ophthalmology
DX: H02.423 Myogenic ptosis of bilateral eyelids (principal); H50.111 Monocular exotropia, right eye; G70.00 Myasthenia gravis without (acute) exacerbation; R79.89 Other specified abnormal findings of blood chemistry; E78.5 Hyperlipidemia, unspecified; Z80.3 Family history of malignant neoplasm of breast; Z12.11 Encounter for screening for malignant neoplasm of colon
CPT/HCPCS: 80053; 80076; 82274; 83516; 83519; 84443; 84550; 85025; 85651; 86038; 86140; 86235; 86430; 86706; 86803; 87340

== ENCOUNTER → 2023-02-18 10:08 | Outpatient (CLI) | payer OTHER, SELFPAY ==
--- NOTE | 2023-02-18 10:10 | DI.MG.S_ITS ---
BILATERAL DIGITAL SCREENING MAMMOGRAM 3D/2D WITH CAD: 02/18/2023 CLINICAL: Routine screening. Family history of breast cancer. Comparison is made to exams dated: 06/30/2018 mammogram, 05/05/2017 mammogram, and 04/01/2016 mammogram - [facility]. There are scattered areas of fibroglandular density in both breasts (category b / 25%-50% glandular tissue). Current study was also evaluated with a Computer Aided Detection (CAD) system. No significant masses, calcifications, or other findings are seen in either breast. There has been no significant interval change. IMPRESSION: NEGATIVE There is no mammographic evidence of malignancy. A 1 year screening mammogram is recommended. Based on the Tyrer Cuzick model (a risk assessment model) the patient's lifetime risk is 18.1% and her 10 year risk is 4.6%. According to the ACR, ACS, and NCCN guidelines, an annual breast MRI exam along with mammogram is recommended if the patient's lifetime risk is 20% or greater. This exam was interpreted at Station ID: [id number]. NOTE: For mammograms, a report in lay terms will be sent to the patient. Approximately 15% of breast malignancies will not be visualized mammographically. In the management of a palpable breast mass, a negative mammogram must not discourage biopsy of a clinically suspicious lesion. Electronically Signed By: Geo siddiqui/grace:02/20/2023 07:08:48 copy to: BATSHEVA SANCHEZ letter sent: Normal Exam ACR BI-RADS Category 1: Negative [id number]
== END ==
PROVIDERS: PCP Family Medicine; Referring Provider Family Medicine; Visit Provider Family Medicine
DX: Z12.31 Encounter for screening mammogram for malignant neoplasm of breast (principal); Z80.3 Family history of malignant neoplasm of breast
CPT/HCPCS: 77063; 77067

== ENCOUNTER → 2023-02-24 10:47 | Outpatient (CLI) | payer OTHER, SELFPAY ==
[2023-02-26 05:26] LABS: RPR Screen Non Reactive (Non Reactive)
[2023-02-28 04:10] LABS: Angiotensin Converting Enzyme 43 U/L (14-82)
[2023-02-28 14:07] LABS: QuantiFERON Mitogen Value >10.00 IU/mL (.); QuantiFERON Nil Value 0.03 IU/mL (.); QuantiFERON TB Gold Plus Positive (Negative); QuantiFERON TB1 Ag Value 0.38 IU/mL (.); QuantiFERON TB2 Ag Value 0.44 IU/mL (.)
[2023-03-05 14:45] LABS: B. henselae IgG Negative titer (Neg:<1:320); B. henselae IgM Negative titer (Neg:<1:100); B. quintana IgG Negative titer (Neg:<1:320); B. quintana IgM Negative titer (Neg:<1:100)
[2023-03-06 15:07] LABS: HLA B27 Negative (.)
== END ==
PROVIDERS: PCP Family Medicine; Referring Provider Ophthalmology; Visit Provider Ophthalmology
DX: H44.133 Sympathetic uveitis, bilateral (principal)
CPT/HCPCS: 36415; 81374; 82164; 85549; 86480; 86592; 86611

== ENCOUNTER → 2023-02-28 08:59 | Outpatient (CLI) | payer OTHER, SELFPAY ==
--- NOTE | 2023-02-28 | DI.MRI.S_ITS ---
PROCEDURE: MR ORBITS FACE NECK WO/W CON INDICATIONS: Unspecified ptosis of bilateral eyelids TECHNIQUE: Noncontrast sagittal T1 spin echo, axial FLAIR, axial gradient echo, axial diffusion and ADC acquired through the brain. Coronal STIR, thin-slice axial T1 spin echo through the orbits. After the administration of contrast, thin-slice axial and coronal T1 spin echo with fat saturation through the orbits, axial and coronal and sagittal T1 spin echo with fat saturation through the brain. COMPARISON: None. FINDINGS: Image quality: Diagnostic, with note made of motion artifact. Orbits: Globes are symmetrical. The optic nerves are normal in size, without abnormal signal or enhancement. No retrobulbar masses or fat abnormalities. The extra-ocular muscles are normal and symmetric in appearance. Lacrimal glands are normal. Optic chiasm is normal. Periorbital soft tissues appear normal. CSF spaces: Ventricles are normal in size and shape. Basal cisterns are patent. No extra-axial fluid collections. Brain: No intracranial bleeds or mass effects. No abnormal intracranial enhancement. Nicholas-white matter interface is intact. Diffusion weighted images demonstrate no acute ischemic insults. Pituitary gland appears normal, without sellar or suprasellar masses. Brainstem appears normal. Normal intravascular flow voids are present. Skull and face: Calvarial marrow is normal in signal. Incidental note is made of hyperostosis frontalis. This is not considered to be pathologic in a woman of this age. Sinuses: Sinuses and mastoids are clear. IMPRESSION: Normal study, without a cause of the patient's presenting history. Normal appearing orbits, with normal extraocular muscles. No masses or abnormal enhancement can be seen. Dictated by: Chris Fox M.D. on 02/28/2023 at 10:35 Approved by: Chris Fxo M.D. on 02/28/2023 at 10:36
== END ==
PROVIDERS: PCP Family Medicine; Referring Provider Ophthalmology; Visit Provider Ophthalmology
DX: H02.403 Unspecified ptosis of bilateral eyelids (principal); H50.17 Alternating exotropia with V pattern; G70.00 Myasthenia gravis without (acute) exacerbation
CPT/HCPCS: 70553

== ENCOUNTER 2023-11-29 12:44 | Emergency (ER) | payer OTHER, SELFPAY ==
[2023-11-29 12:46] VITALS: BP 123/76; PULSE 90; RESP 16; TEMP 36.6; O2SAT 98; BMI 27.3
--- NOTE | 2023-11-29 12:55 | DI.RAD.S_ITS ---
PROCEDURE: XR FOOT RT MIN 3V INDICATIONS: pain TECHNIQUE: 3 views of the foot were acquired. COMPARISON: [facility], , FOOT 3V RIGHT, 05/10/2013, 14:16. 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 Mild degenerative changes at the talonavicular and calcaneocuboid joints with joint space narrowing and small osteophytes. No radiographic evidence of acute fracture, dislocation or high attenuation soft tissue foreign body. 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 Mild degenerative changes talonavicular and calcaneocuboid joints. No radiographic evidence of acute fracture, dislocation. If symptoms persist or worsen, or there is high clinical suspicion of foot/a abnormality, MRI could be performed. Dictated by: Fran Kothari M.D. on 11/29/2023 at 14:30 Approved by: Fran Kothari M.D. on 11/29/2023 at 14:33
--- NOTE | 2023-11-29 12:55 | DI.RAD.S_ITS ---
PROCEDURE: XR ANKLE RT MIN 3V INDICATIONS: lateral ankle pain TECHNIQUE: 3 views of the ankle were acquired. COMPARISON: None. FINDINGS: Bones: [id number] degenerative changes at the talonavicular joint with joint space narrowing and small osteophytes. No radiographic evidence of displaced fracture, dislocation or high attenuation soft tissue foreign body. IMPRESSION: Mwsy-ud-lmiicpfg degenerative changes at the talonavicular joint. No radiographic evidence of displaced fracture, dislocation. If symptoms persist or worsen, however there is high clinical suspicion of right ankle/foot abnormality, MRI could be performed. Dictated by: Fran Kothari M.D. on 11/29/2023 at 14:26 Approved by: Fran Kothari M.D. on 11/29/2023 at 14:29
--- NOTE | 2023-11-29 12:56 | ED.LOWEXIN ---
HPI - Extremity Injury (Lower) <Heaven Coleman PA-C - Last Filed: 11/29/23 13:56> General Chief Complaint: Extremity Injury, Lower Stated Complaint: twisted rt ankle Time Seen by Provider: 11/29/23 12:52 Source: patient Mode of arrival: Ambulatory History of Present Illness HPI Narrative: Patient is a very pleasant 53-year-old female who presents to the emergency room department with right lower lateral ankle pain and foot pain. Patient was in her garden yesterday and she stepped on a rock and twisted her ankle. She now presents to the emergency department with soft tissue swelling, bruising, discomfort pain with ambulation. She has been elevating it, resting it, icing it, she took [id number] Tylenol and use Salonpas last night with limited relief. She presented to the emergency room department today with concerns that she might have possibly injured more than just a simple sprain. She has no other further complaints. Related Data Previous Rx's Medication Instructions Recorded rosuvastatin 10 mg tablet 10 mg PO DAILY #90 tabs 01/18/23 albuterol sulfate 90 mcg/actuation 1 puff inhalation Q4H PRN 06/06/23 aerosol inhaler (Ventolin HFA) bronchospasm #6.7 grams Allergies Allergy/AdvReac Type Severity Reaction Status Date / Time erythromycin base Allergy Mild Verified 11/29/23 12:50 penicillin G Allergy Mild HIVES Verified 11/29/23 12:50 Review of Systems <Heaven Coleman PA-C - Last Filed: 11/29/23 13:56> Review of Systems Narrative: Negative except as above Musculoskeletal Comments: Right ankle pain, soft tissue swelling, ecchymosis, limited range of motion due to discomfort and pain. 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 Hyperlipidemia Elevated LFTs Skin cancer PVCs (premature ventricular contractions) Surgical History History of third molar tooth extraction Family History Mother Age: 90 Hypertension Sister Age: 66 Cancer Social History Smoking Status: Never smoker alcohol intake: never Smoking Status: Never smoker Substance Use Type: does not use Exam <Heaven Coleman PA-C - Last Filed: 11/29/23 13:56> Initial Vital Signs Initial Vital Signs: Vital Signs Temperature 97.8 F 11/29/23 12:46 Pulse Rate 90 11/29/23 12:46 Respiratory Rate 16 11/29/23 12:46 Blood Pressure 123/76 11/29/23 12:46 Pulse Oximetry 98 11/29/23 12:46 Oxygen Delivery Method Room Air 11/29/23 12:46 Const General: cooperative, healthy appearing, comfortable, well developed and well groomed Nutritional Appearance: average body habitus Orientation: Orientation Eyes General: Yes appearance normal, both eyes and all related structures Pupils: PERRL EOM: EOM intact bilaterally Skin General: ecchymosis and warm Neuro Other: Cranial nerves are grossly intact. Patient is wheelchair due to discomfort and pain. Extrem Other: Patient using a wheelchair due to discomfort and pain. Right lower extremity, no pain to the knee, tib-fib, pain to the right ankle, moderate amount of soft tissue swelling and ecchymosis to the lateral right ankle, cap refills intact, pulses are present. No pain over the tarsometatarsal. Patient is able to plantar and dorsiflex with some discomfort and pain. Pain with inversion eversion but able to do it under passive range of motion. <Beck Ward MD - Last Filed: 12/22/23 11:54> Initial Vital Signs Initial Vital Signs: Vital Signs Temperature 97.8 F 11/29/23 12:46 Pulse Rate 90 11/29/23 12:46 Respiratory Rate 16 11/29/23 12:46 Blood Pressure 123/76 11/29/23 12:46 Pulse Oximetry 98 11/29/23 12:46 Oxygen Delivery Method Room Air 11/29/23 12:46 Course <Heaven Coleman PA-C - Last Filed: 11/29/23 13:56> Orders Ordered: ED Orders 11/29/23 12:55 XR ankle RT min 3V Stat XR foot RT min 3V Stat Vital Signs Vital signs: Vital Signs - 8 hr 11/29/23 12:46 Temperature 97.8 F Pulse Rate 90 Respiratory Rate 16 Blood Pressure 123/76 Pulse Oximetry 98 Oxygen Delivery Method Room Air <Beck Ward MD - Last Filed: 12/22/23 11:54> Orders Ordered: ED Orders 11/29/23 12:55 XR ankle RT min 3V Stat XR foot RT min 3V Stat Vital Signs Vital signs: Vital Signs - 8 hr 11/29/23 12:46 Temperature 97.8 F Pulse Rate 90 Respiratory Rate 16 Blood Pressure 123/76 Pulse Oximetry 98 Oxygen Delivery Method Room Air MDM - Extremity Injury (Lower) <Heaven Coleman PA-C - Last Filed: 11/29/23 13:56> Imaging Data Extremity x-ray #1: My Impression: Right ankle, right foot, negative for any acute fracture. MDM Narrative Medical decision making narrative: Patient is a pleasant 53-year-old female presents to the emergency room department today with complaints of right ankle and foot pain after twisting in the garden yesterday. Patient has stepped on a rock and twisted her ankle. Been doing [id number] supportive therapy home with continued discomfort pain and moderate discomfort with ambulation. Presents to the emergency room department to have it evaluated, concerns that there might possibly be a break, concerned more than just a simple sprain. X-ray right foot negative for acute fracture X-ray right ankle negative for acute fracture Aircast Differential diagnosis; distal tib-fib fracture, 5th metatarsal fracture, ankle sprain, talofibular ligament sprain, tear, strain. Discharge Plan Departure Patient Disposition: Home Clinical Impression: Ankle sprain and strain Instructions: DI for Ankle Sprain Activity Restrictions/Additional Instructions: Elevate, ice, ibuprofen, and then Tylenol back and forth for discomfort and pain. Topical diclofenac, Biofreeze, capsaicin. Aircast for support, follow-up with your primary care doctor as needed. Your x-rays are negative for any acute fracture. You have an ankle sprain. These usually take anywhere from 7-10 days to completely heal. Prescriptions: No Action rosuvastatin 10 mg tablet 10 mg PO DAILY Qty: 90 3RF albuterol sulfate [Ventolin HFA] 90 mcg/actuation HFA aerosol inhaler 1 puff inhalation Q4H PRN (Reason: bronchospasm) Qty: 6.7 11RF Referrals: Antonia Varela DO [Primary Care Provider] - Stand Alone Forms: Patient Portal/API ED Sign-out <Beck Ward MD - Last Filed: 12/22/23 11:54> [facility]ign ED Attending Cosignature Attestation: I was immediately available in the department for consultation. ?This documentation has been reviewed and I agree with assessment and plan. Supervised by Beck Ward MD
--- NOTE | 2023-11-29 13:57 | PC.NURSE ---
Rolled right ankle a few days ago. C/o ongoing pain. Worse w/ ambulation.
== END 2023-11-29 14:04 | disposition home or self-care (01) ==
PROVIDERS: Emergency Provider Physician Assistant; PCP Family Medicine
DX: S93.401A Sprain of unspecified ligament of right ankle, initial encounter (principal); X50.1XXA Overexertion from prolonged static or awkward postures, initial encounter
CPT/HCPCS: 73610; 73630; 99281; 99283

== ENCOUNTER → 2024-04-12 11:12 | Outpatient (CLI) | payer OTHER, SELFPAY ==
[2024-04-12 12:27] LABS: Alanine Aminotransferase 36 IU/L (<35); Albumin 4.3 g/dL (3.5-5.0); Albumin Globulin Ratio 1.7 (1.0-2.8); Alkaline Phosphatase 78 U/L (38-126); Aspartate Aminotransferase 39 IU/L (14-36); Bilirubin Total 0.3 mg/dL (0.2-1.3); Blood Urea Nitrogen 14 mg/dL (7-17); Carbon Dioxide 26 mmol/L (22-32); Chloride 109 mmol/L (98-107); Cholesterol 158 mg/dL (140-199); Estimated Glomerular Filt Rate > 60 mL/min (>60); Globulin 2.5 g/dL (1.7-4.1); Glucose 97 mg/dL (70-100); HDL Cholesterol 69 mg/dL (40-60); HEMOLYSIS < 15 (0-50); LDL Cholesterol Calculated 60 mg/dL (<100); Potassium 3.7 mmol/L (3.4-5.1); Sodium 141 mmol/L (137-145); Total Protein 6.8 g/dL (6.3-8.2); Triglycerides 145 mg/dL (35-150)
[2024-04-12 13:07] LABS: HIV 1 & 2 Ab/Ag 4th Gen Combo NEGATIVE (NEGATIVE)
== END ==
PROVIDERS: PCP Family Medicine; Referring Provider Family Medicine; Visit Provider Family Medicine
DX: Z00.00 Encounter for general adult medical examination without abnormal findings (principal)
CPT/HCPCS: 36415; 80053; 80061; 87389

== ENCOUNTER 2024-06-03 11:16 | Day surgery (SDC) | payer OTHER, SELFPAY ==
--- NOTE | 2024-06-03 12:21 | P.HP_ITS ---
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5 mcg/actuation aerosol grams inhaler (Symbicort) rosuvastatin 10 mg tablet 10 mg PO DAILY #90 tabs 04/12/24 04/12/24 Rx sodium,potassium,mag sulfates 17.5 See Rx Instructions PO .COMPLEX 05/14/24 Rx gram-3.13 gram-1.6 gram oral soln #354 mL (Suprep Bowel Prep Kit) Allergies Allergy/AdvReac Type Severity Reaction Status Date / Time erythromycin base Allergy Mild Verified 06/03/24 12:20 penicillin G Allergy Mild HIVES Verified 06/03/24 12:20 Exam Narrative Exam Narrative: Oropharynx free of lesions Chest clear to auscultation percussion Cardiac exam reveals no S3 or murmur Assessment & Plan Assessment & Plan narrative: First-time screening for colon cancer. Risks, benefits, alternatives have been explained. Time-Based Coding :: [TOTAL MINUTES] spent with patient and on the chart (including review of chart, obtaining history, exam, reviewing outside data, placing orders, documenting exam and treatment plan, and counseling patient) on [DATE]. PROFEE Bailiff Document charge(s): No
--- NOTE | 2024-06-03 12:22 | P.OP.COLON_ITS ---
Operative Date/Time/Diagnoses Date of procedure: 06/03/24 Pre-op diagnosis: See indications and findings Post-op diagnosis: same Procedure & Clinicians Study performed: Colonoscopy Same procedure as scheduled: Yes Indications: For screening colonoscopy Surgeon: Darryl Bauman Procedure Notes Procedure in detail: After informed consent was obtained the patient was placed in left lateral decubitus position. The video colonoscope was placed into the rectum slowly ad vanced cecum. Preparation was good. On slow withdrawal mucosa was carefully examined. The scope was removed. The patient tolerated procedure well. Blood loss none Complications none Sedation mac Findings, normal colonoscopy to cecum Patient should have follow-up colonoscopy in 10 years
[2024-06-03 12:23] VITALS: BP 124/84; PULSE 95; RESP 16; TEMP 36.6; O2SAT 100
[2024-06-03] MEDS: LACTATED RINGERS 1,000 ML 150 ML IV (12:30)
[2024-06-03 13:30] VITALS: BP 127/69; PULSE 91; RESP 16; TEMP 36.9; O2SAT 94
[2024-06-03 13:35] VITALS: BP 129/79; PULSE 89; RESP 17; O2SAT 95
[2024-06-03 13:40] VITALS: BP 127/81; PULSE 83; RESP 16; TEMP 36.6; O2SAT 97
== END 2024-06-03 13:55 | disposition home or self-care (01) ==
PROVIDERS: PCP Family Medicine; Referring Provider Internal Medicine Gastroenterology; Visit Provider Internal Medicine Gastroenterology
PROC: 0DJD8ZZ Inspection of Lower Intestinal Tract, Via Natural or Artificial Opening Endoscopic (ICD-10-PCS; CPT 45378; principal; 2024-06-03 13:00)
DX: Z12.11 Encounter for screening for malignant neoplasm of colon (principal)
CPT/HCPCS: 45378; J2405; J2704